=== PATIENT | female | born 2000 | race Caucasian/White ===

== ENCOUNTER → 2022-06-11 | Outpatient (CLI) | payer BC ==
--- NOTE | 2022-06-11 12:04 | FL ---
EXAMINATION TYPE: FL barium swallow DATE OF EXAM: 06/11/2022 CLINICAL HISTORY: History of ingested foreign body or metallic coin as a toddler presents with dyspha sylvester on and off for 4 years. TECHNIQUE: A double contrast esophagram is performed utilizing air and barium. A total of 48 second s of fluoroscopic time was utilized during procedure and 48 images obtained. Total dose area product (DAP) in uGy*m?, mGy*cm? (or similar) 253.67. COMPARISON: None FINDINGS: The esophagus shows satisfactory motility. No proximal diverticulum. No evidence of fixed hiatal hernia. There is pooling of contrast due to abrupt narrowing without mucosal abnormality in th e distal esophagus. This then improves but does not show diameter equal to the mid to distal esophagu s just proximal to this. No significant gastroesophageal reflux was seen during real time performance of this study. IMPRESSION: There is a fairly moderate distal esophageal stricture thought present. Direct visualiza tion with possible balloon dilatation is advised.
== END | disposition home or self-care (01) ==
LOC: RADUSWWP 11:12
PROVIDERS: ATTEND Otolaryngology
DX: K22.2 Esophageal obstruction (principal); R13.19 Other dysphagia
CPT/HCPCS: 74220

== ENCOUNTER 2022-07-27 10:01 | Day surgery (SDC) | payer BC ==
[2022-07-27 11:19] VITALS: TEMP 97.8
[2022-07-27] MEDS ORDERED: LACTATED RINGERS 1,000 ML IV ONE (11:26)
[2022-07-27] MEDS ORDERED: PROPOFOL 10 MG/ML 20 ML VIAL IV ONE (11:58)
[2022-07-27] MEDS ORDERED: LIDOCAINE 2% INJ 20 MG/ML (2 ML VIAL) ONE (11:58)
--- NOTE | 2022-07-27 12:11 | P.PCN ---
Date of Procedure: 07/27/22 Procedure(s) Performed: BRIEF HISTORY: Patient is a 21-year-old, pleasant, white female scheduled for an upper endoscopy as a part of evaluation of intermittent dysphagia to solids for the last several years duration. PROCEDURE PERFORMED: Esophagogastroduodenoscopy with biopsy. PREOPERATIVE DIAGNOSIS: Intermittent dysphagia to solids. IV sedation per anesthesia. PROCEDURE: After informed consent was obtained, the patient was brought into the endoscopy unit. IV sedation was administered by Anesthesia under continuous monitoring. Initially the Olympus GIF-140 video endoscope was inserted into the mouth. Esophagus intubated without any difficulty. It was gradually advanced into the distal esophagus and the lower esophageal sphincter appeared somewhat tight and with gentle pressure I was able to advance the scope into the stomach and duodenum and carefully examined. The bulb and the second part of the duodenum appeared normal. The scope at this time was withdrawn to the stomach, adequately insufflated with air, and upon careful examination, mucosa of the antrum, body, cardia and the fundus appeared normal. The scope was then withdrawn into the esophagus. The GE junction was located at 39 cm from the incisors. The lower esophageal sphincter appeared slightly tight but no obvious stricture identified. The and the length of esophagus appeared normal. There were no erosions or ulcerations seen , multiple biopsies were done from the mid and distal esophagus and the patient tolerated the procedure well. IMPRESSION: 1. Tight lower esophageal sphincter but no evidence of esophageal stricture, suspicious for esophageal achalasia. 2. Stomach and duodenum appeared normal. RECOMMENDATIONS: The findings of this examination were discussed with the patient as well as a family. She will be scheduled for an esophageal manometry to evaluate for esophageal dysmotility and she will be seen in office in 3-4 weeks..
[2022-07-27 12:18] VITALS: RESP 18
[2022-07-27 12:32] VITALS: BP 130/53; PULSE 83
== END 2022-07-27 13:04 | disposition home or self-care (01) ==
LOC: ORWHC2ENDO 10:01
PROVIDERS: ATTEND Internal Medicine Gastroenterology
DX: K20.90 Esophagitis, unspecified without bleeding (principal); Z79.899 Other long term (current) drug therapy
CPT/HCPCS: 88305; 43239; J2704; J2001